=== PATIENT | female | born 1995 | race Caucasian/White ===

== ENCOUNTER 2024-04-12 04:47 | Inpatient (IN) | payer OTHER ==
[2024-04-12] VITALS (10 sets, daily range): BP systolic 107–131; BP diastolic 58–774; PULSE 76–103; TEMP 97.8–98.1
[~2024-04-12] VITALS: Ht 177.8 cm; Wt 70.5 kg
[~2024-04-12 04:47] MED LIST: PRENATAL TABLET PO
--- NOTE | 2024-04-12 04:51 | NUR ---
0451-ARRIVED AMBULATORY TO LR5. STATES CTX STARTED AT 2AM AND ARE GETTING STRONGER AND MORE FREQUENT. PT BREATHING THROUGH CTX. STATES SHE IS GBS POSITIVE. DOES NOT WANT AN EPIDURAL. REPORTS NO COMPLICATIONS WITH THIS . REPORTS ACTIVE FM. DENIES ROM. SMALL AMOUNT BLOODY SHOW. 0500-CALLED MD WITH REPORT. WILL ADMIT AND START GBS PROTOCOL. 0520-IVF AND PEN G INFUSING, PT STATES FEELS URGE TO PUSH. PT 9CM, LARGE BULGING BAG PALPATED. 0521-CALLED DR SHIRLEY TO COME FOR DELIVERY, REPORT ON SVE AND URGE TO PUSH. 0524-SROM CLEAR 0530-PT REMAINS IN HANDS AND KNEES, NURSE AT BEDSIDE. PT WITH STRONG URGE TO PUSH WITH CTX. 0534-PUSHING INVOLUNTARILY. SUPPORTING PERINEUM. SEE DELIVERY NOTE.
[2024-04-12] MEDS ORDERED: Penicillin G Potassium 5,000,000 UNITS in NS 100 ML IV ONE (05:15)
[2024-04-12] MEDS ORDERED: LR 1,000 ML IV SCH (05:15)
[2024-04-12] MEDS ORDERED: LR & Oxytocin 500 ML IV SCH (05:15)
--- NOTE | 2024-04-12 05:15 | NUR ---
DIFFICULT TRACING EFM DUE TO PT POSITION AND MOVEMENT. MONITORS ADJUSTED
--- NOTE | 2024-04-12 05:35 | NUR ---
PT WAS IN HANDS AND KNEES POSITION ON THE BED. PUSHING INVOLUNTARILY. NURSE PROVIDED PERINEAL SUPPORT BABY CROWNED AND DELIVERED WITHOUT COMPLICATION. DR SHIRLEY TO ROOM BABY DELIVERED
[2024-04-12 05:38] LABS: BASO % 0.2 % (0.0-2.0); EOS # 0.1 K/mm3 (0.0-0.7); EOS % 0.3 % (0.0-4.0); GRAN # 11.7 K/mm3 (1.4-6.5); GRAN % 77.7 % (42.2-75.2); HEMATOCRIT 40.2 % (37.0-47.0); HEMOGLOBIN 14.3 g/dl (12.5-16.0); LYMPH # 2.2 K/mm3 (1.2-3.4); LYMPH % 14.6 % (20.0-51.0); MEAN CELL VOLUME 97 fl (80.0-100.0); MEAN CORPUSCULAR HEMOGLOBIN 35 pg (27-31); MEAN CORPUSCULAR HGB CONC 36 g/dl (33.0-37.0); MEAN PLATELET VOLUME 8.9 fl (7.4-10.4); MONO % 6.5 % (1.7-9.3); PLATELET COUNT 300 K/mm3 (130-400); RED BLOOD COUNT 4.13 M/mm3 (4.10-5.30); REDCELL DISTRIBUTION WIDTH-CV 12.6 % (11.5-14.5)
[2024-04-12] MEDS ORDERED: PEPCID 20MG TAB20 MG PO (06:06)
[2024-04-12] MEDS ORDERED: Magnes Hydrox (MOM) 80 MG/ML 30 ML CUP PO PRN (06:15)
[2024-04-12] MEDS ORDERED: Loratadine 10 MG TAB PO PRN (06:15)
[2024-04-12] MEDS ORDERED: Phenylephrine/Mineral Oil/Petrolatum 57 GM TUBE RC PRN (07:15)
[2024-04-12] MEDS ORDERED: Measles/Mumps/Rubella Virus Vaccine Live w Diluent 0.5 ML VIAL SQ SCH (07:15)
[2024-04-12] MEDS ORDERED: oxyCODONE 5 MG TAB PO PRN (07:15)
[2024-04-12] MEDS ORDERED: Naloxone 0.4 MG/ML VIAL IV PRN (07:15)
[2024-04-12] MEDS ORDERED: Mag/Al Hydrox/Simeth Susp 30 ML CUP PO PRN (07:15)
[2024-04-12] MEDS ORDERED: Witch Hazel 50% Pads Bulk TUB TP PRN (07:15)
[2024-04-12] MEDS ORDERED: Acetaminophen 500 MG TAB PO SCH (07:15)
[2024-04-12] MEDS ORDERED: Ibuprofen 800 MG TAB PO SCH (07:15)
[2024-04-12] MEDS ORDERED: Sennosides/Docusate 8.6-50 MG TAB PO SCH (08:00)
[2024-04-12] MEDS ORDERED: Penicillin G Potassium 2,500,000 UNITS in NS 100 ML IV SCH (09:02)
[2024-04-12] MEDS ORDERED: traZODone 50 MG TAB PO PRN (21:00)
[2024-04-13 07:15] VITALS: BP 101/60; PULSE 79; TEMP 97.2
--- NOTE | 2024-04-13 10:25 | NUR ---
Initial visit; Patient thanked Lead Inspector for looking in on her and offering congratulations and God's blessings for the of her son. Lead Inspector thanked patient for choosing [facility].
== END 2024-04-13 14:10 | disposition home or self-care (01) | DRG 807 ==
LOC: LDRO 04:47 → LDR 05:03 → OB 08:30
PROVIDERS: Internal Medicine; ADMIT Obstetrics & Gynecology
PROC: 10E0XZZ Delivery of Products of Conception, External Approach (ICD-10-PCS; principal; 2024-04-12)
PROC: 0HQ9XZZ Repair Perineum Skin, External Approach (ICD-10-PCS; 2024-04-12)
DX: O99.824 Streptococcus B carrier state complicating childbirth (principal); Z37.0 Single live birth; Z3A.37 37 weeks gestation of pregnancy; O70.0 First degree perineal laceration during delivery
CPT/HCPCS: J2540; J2590; J7120